=== PATIENT | female | born 1965 | race Caucasian/White ===

== ENCOUNTER 2020-03-11 10:47 | Emergency (ER) | payer OTHER ==
[2020-03-11 10:51] VITALS: BP 122/61; PULSE 65; TEMP 98.4; BMI 23.3
[2020-03-11] MEDS ORDERED: CYCLOBENZAPRINE HCL 10 MG TABLET (FP) PO ONE (11:02)
[2020-03-11] MEDS ORDERED: KETOROLAC TROMETHAMINE 60 MG/2 ML VIAL IM ONE (11:02)
[2020-03-11] MEDS ORDERED: CYCLOBENZAPRINE HCL 10 MG TABLET (FP) ONE ×2 (11:05→11:08)
[2020-03-11] MEDS ORDERED: KETOROLAC TROMETHAMINE 60 MG/2 ML VIAL ONE (11:05)
--- NOTE | 2020-03-11 11:09 | PDOC ---
History of Present Illness - General Chief Complaint: Back Pain Stated Complaint: BACK PAIN Time Seen by Provider: 03/11/20 10:57 History Source: Patient - History of Present Illness Timing/Duration: 1 week Past History - Medical History Allergies/Adverse Reactions: Allergies Allergy/AdvReac Type Severity Reaction Status Date / Time No Known Drug Allergies Allergy Verified 03/11/20 10:49 Home Medications: Ambulatory Orders Cyclobenzaprine HCl [Flexeril 10 mg] 10 mg PO HS #9 tablet 03/11/20 Ibuprofen [Motrin -] 800 mg PO Q6H #30 tablet 03/11/20 COPD: No Disorders: Yes (KIDNEY STONES) Kidney Stones: Yes - Reproductive History Is Patient Now?: No - Psycho-Social/Smoking History Smoking History: Never smoked Have you smoked in the past 12 months: No - Substance Abuse Hx (Audit-C & DAST Scrn) How often the patient has a drink containing alcohol: Never Score: In Men: 4 or > Positive; In Women: 3 or > Positive: 0 Screen Result (Pos requires Nsg. Audit-10AR): Negative Review of Systems - Review of Systems Constitutional: No: Chills ABD/GI: No: Nausea, Vomiting, Abdominal cramping : No: Dysuria, Discharge, Flank Pain, Hematuria Musculoskeletal: Yes: Back Pain Neurological: No: Numbness, Tingling, Weakness *Physical Exam - Vital Signs Last Vital Signs Temp Pulse Resp BP Pulse Ox 98.4 F 65 18 122/61 100 03/11/20 10:50 03/11/20 10:50 03/11/20 10:50 03/11/20 10:50 03/11/20 10:50 - Physical Exam General Appearance: Yes: Appropriately Dressed, Mild Distress HEENT: positive: Normal Voice Neck: positive: Supple Respiratory/Chest: negative: Respiratory Distress Gastrointestinal/Abdominal: positive: Normal Bowel Sounds, Soft. negative: Tender, Distended, Guarding, Rebound Musculoskeletal: positive: Vertebral Tenderness (to mid lower back). negative: CVA Tenderness Integumentary: positive: Dry, Warm Neurologic: positive: Fully Oriented, Alert, Normal Mood/Affect, Motor Strength 5/5 ED Treatment Course - RADIOLOGY Radiology Studies Ordered: Category Date Time Status SPINE-LUMBAR SACRAL [RAD] Stat Radiology 03/11/20 11:02 Ordered Medical Decision Making - Medical Decision Making 03/11/20 11:05 54-year-old female ,history of kidney stones, chronic lower back pain with no disc herniation or stenosis on thoracic and lumbar MRI in 2018 at [facility], here with worsening of her usual back pain x 1 week. Pain achy in nature, 8 of the 10, located to mid lower back and does not radiate, worse w/ movement. No trauma. No sensory changes, lower extremity weakness or incontinence. Denies dysuria, hematuria, nausea vomiting fever or chills. Taking Advil for pain with no relief see exam Acute on chronic LBP Normal MRI in 2018 at [facility] No red flags today No trauma Pain control in ED Dc w/ same and PMD f/u 03/11/20 11:39 XR read as minimal arthritic changes. Dc w/ pain control and PMD f/u Discharge - Discharge Information Problems reviewed: Yes Clinical Impression/Diagnosis: Chronic low back pain Qualifiers: Back pain laterality: unspecified Sciatica presence: without sciatica Qualified Code(s): M54.5 - Low back pain Condition: Good Disposition: HOME - Additional Discharge Information Prescriptions: Cyclobenzaprine HCl [Flexeril 10 mg] 10 mg PO HS #9 tablet Ibuprofen [Motrin -] 800 mg PO Q6H #30 tablet - Follow up/Referral Referrals: Ronnell Payton MD [Primary Care Provider] - - Patient Discharge Instructions Patient Printed Discharge Instructions: DI for Low Back Pain Additional Instructions: Take medications as directed and follow up with your PMD - Post Discharge Activity
== END 2020-03-11 11:40 | disposition home or self-care (01) ==
LOC: JERFT 10:47
PROC: 3E0233Z Introduction of Anti-inflammatory into Muscle, Percutaneous Approach (ICD-10-PCS; principal; 2020-03-11)
DX: M54.5 Low back pain (principal)
CPT/HCPCS: 72100-TC-FY; 99284-25

== ENCOUNTER 2023-10-20 09:48 | Emergency (ER) | payer OTHER ==
[2023-10-20 10:03] VITALS: BP 130/67; PULSE 61; RESP 18; TEMP 97.3; BMI 26.9
[2023-10-20] MEDS ORDERED: TETRACAINE 0.5% OPHTH SOLN 2 ML BOTTLE ONE (10:17)
[2023-10-20] MEDS ORDERED: FLUORESCEIN NA 1 EA STRIP ONE (10:17)
[2023-10-20] MEDS: FLUORESCEIN NA 1 EA STRIP OS ONE (10:31)
[2023-10-20] MEDS: TETRACAINE 0.5% HCL 0.6ML DROPPER.BOTTLE OS ONE (10:31)
[2023-10-20] MEDS ORDERED: ERYTHROMYCIN 0.5% OPHTHALMIC OINTMENT 3.5 GM TUBE ONE (10:44)
[2023-10-20] MEDS: ERYTHROMYCIN 0.5% OPHTHALMIC OINTMENT 3.5 GM TUBE OS ONE (10:51)
[2023-10-21] MEDS ORDERED: ERYTHROMYCIN 0.5% OPHTHALMIC OINTMENT 3.5 GM TUBE OS ONE (10:41)
== END 2023-10-20 10:53 | disposition home or self-care (01) ==
LOC: JER 09:48 → JERFT 09:48
DX: T15.92XA Foreign body on external eye, part unspecified, left eye, initial encounter (principal); W25.XXXA Contact with sharp glass, initial encounter
CPT/HCPCS: 99283-25